=== PATIENT | male | born 1990 | race Caucasian/White ===

== ENCOUNTER 2020-06-26 15:42 | Emergency (ER) | payer OTHER ==
[~2020-06-26 15:42] MED LIST: CLEOCIN HCL150 MG PO; LODINE CAP 300300 MG PO; TRAMADOL HCL50 MG PO; ZOFRAN ODT 4 MG4 MG PO
== END 2020-06-26 17:15 | disposition home or self-care (01) ==
LOC: ER1 15:42
DX: S93.402A Sprain of unspecified ligament of left ankle, initial encounter (principal); F17.210 Nicotine dependence, cigarettes, uncomplicated; W18.42XA Slipping, tripping and stumbling without falling due to stepping into hole or opening, initial encounter; Y92.009 Unspecified place in unspecified non-institutional (private) residence as the place of occurrence of the external cause
CPT/HCPCS: 73610; 73630; 99283